=== PATIENT | female | born 1945 | race Caucasian/White ===

== ENCOUNTER 2016-06-08 09:32 | Day surgery (SDC) | payer MEDICARE, BC ==
[~2016-06-08] VITALS: Ht 157.5 cm; Wt 95.0 kg
[~2016-06-08 09:32] MED LIST: ASPIRIN E.C. 8181 MG PO; CALTRATE 600 +1 TAB PO; CENTRUM SILVER1 TAB; COLACE 100100 MG/CAP PO; GLUCOPHAGE1000 MG PO; LIPITOR20 MG PO; NORCO 325 MG-7.1 TAB PO; PRILOSEC 20MG20 MG PO; TRADJENTA5 MG PO; VICTOZA6 MG/ML SQ
[2016-06-08 12:05] VITALS: BP 145/75; PULSE 100; TEMP 98
[2016-06-08 12:20] VITALS: BP 131/76; PULSE 85
[2016-06-08 12:43] VITALS: BP 126/55; PULSE 88
[2016-06-08 13:00] VITALS: BP 145/76; PULSE 82; TEMP 98.2
== END 2016-06-08 12:50 | disposition home or self-care (01) ==
LOC: SDCO 09:32
DX: D50.9 Iron deficiency anemia, unspecified (principal); K57.30 Diverticulosis of large intestine without perforation or abscess without bleeding; K21.9 Gastro-esophageal reflux disease without esophagitis
CPT/HCPCS: J2250; J3010; J7030

== ENCOUNTER → 2023-03-15 | Outpatient (CLI) | payer MEDICARE, BC | LOC: COL.RAD 09:00 | DX: C54.1 Malignant neoplasm of endometrium (principal) | CPT/HCPCS: A9575 ==